=== PATIENT | female | born 1975 | race African-American/Black ===

== ENCOUNTER 2023-09-04 14:50 | Emergency (ER) | payer SELFPAY ==
[2023-09-04 15:53] LABS: BASOPHILS PERCENT AUTO 0.6 % (0.0-1.0); EOSINOPHILS PERCENT AUTO 0.1 % (0.0-6.0); HEMATOCRIT 43.6 % (37.0-47.0); HEMOGLOBIN 14.6 gm/dl (12.0-16.0); IMMATURE GRAN ABSOLUTE AUTO 0.01 K/mm3 (0.00-0.05); IMMATURE GRAN PERCENT AUTO 0.1 % (0.0-0.4); LYMPHOCYTES ABSOLUTE AUTO 1.8 K/mm3 (1.0-4.8); LYMPHOCYTES PERCENT AUTO 27.5 % (24.0-44.0); MEAN CORPUSCULAR HEMOGLOBIN 31.7 pg (28.0-32.0); MEAN CORPUSCULAR HGB CONC 33.5 g/dl (32.0-36.0); MEAN CORPUSCULAR VOLUME 94.6 fl (83.0-99.0); MEAN PLATELET VOLUME 11.5 fl (9.4-12.3); MONOCYTES ABSOLUTE AUTO 0.4 K/mm3 (0.0-0.8); MONOCYTES PERCENT AUTO 5.2 % (0.0-8.0); NEUTROPHILS ABSOLUTE AUTO 4.4 K/mm3 (1.8-7.7); NEUTROPHILS PERCENT AUTO 66.5 % (41.0-71.0); PLATELET COUNT,PLT 189 K/mm3 (150-400); RED BLOOD CELL COUNT 4.61 M/mm3 (4.10-5.30); WHITE BLOOD CELL COUNT,WBC 6.68 K/mm3 (3.9-11.3)
[2023-09-04] MEDS: Iopamidol 755 Mg/ML 100 ML Bottle IVPUSH ONE (16:00)
[2023-09-04] MEDS: Sodium Chloride 0.9% 100 ML IV SCH (16:01)
[2023-09-04 16:06] LABS: A/G RATIO 1.3 (1-2); ALANINE AMINOTRANSFERASE,ALT 41 U/L (14-59); ALBUMIN 4.9 g/dl (3.4-5.0); ALKALINE PHOSPHATASE 89 U/L (46-116); ANION GAP 24.3 (5-15); ASPARTATE AMNIOTRANSFERASE,AST 84 U/L (15-37); BILIRUBIN TOTAL 1.1 mg/dL (0.2-1.0); BLOOD UREA NITROGEN,BUN 10 mg/dL (7-18); CALCIUM 9.5 mg/dL (8.5-10.1); CARBON DIOXIDE,CO2 19 mEq/L (21-32); CHLORIDE,CL 97 mEq/L (98-107); CREATINE KINASE,CK 149 U/L (26-192); EST CRCL DRUG DOSING (CG) 67.63 mL/min; ESTIMATED GFR 70 mL/min (>60); GLUCOSE RANDOM 84 mg/dL (70-99); MAGNESIUM 1.5 mg/dL (1.8-2.4); POTASSIUM,K 4.3 mEq/L (3.5-5.1); PROTEIN TOTAL,TP 8.7 g/dl (6.4-8.2); SODIUM,NA 136 mEq/L (136-145)
[2023-09-04 16:07] LABS: TROPONIN I HIGH SENSITIVITY < 4 pg/mL (<=51)
[2023-09-04] MEDS: Sodium Chloride 0.9% 10 ML Syringe FLUSH PRN (16:22)
[2023-09-04] MEDS: Sodium Chloride 0.9% 1,000 ML IV ONE (16:22)
[2023-09-04 17:07] LABS: CORONAVIRUS COVID-19 NAA NEGATIVE (NEGATIVE); INFLUENZA A NAA NEGATIVE (NEGATIVE); RESPIRATORY SYNCYTIAL VIR NAA NEGATIVE (NEGATIVE)
[2023-09-04] MEDS: hydrALAZINE 20 MG/ML SDV IVPUSH ONE (17:23)
[2023-09-04] MEDS ORDERED: Magnesium Oxide 400 MG Tab PO ONE (19:20)
== END 2023-09-04 20:01 | disposition home or self-care (01) ==
LOC: JD.ED 14:50
DX: I10 Essential (primary) hypertension (principal); R07.9 Chest pain, unspecified; R11.2 Nausea with vomiting, unspecified
CPT/HCPCS: 0241U; 36415; 71275; 80053; 82550; 82947; 83735; 84484; 84703; 85025; 93005; 96361; 96374; 99285; J0360; J3490; J7030; Q9967